=== PATIENT | male | born 1980 | race Caucasian/White ===

== ENCOUNTER 2017-05-03 10:17 | Emergency (ER) | payer SELFPAY ==
[~2017-05-03] VITALS: Ht 187.9 cm; Wt 99.8 kg
[~2017-05-03 10:17] MED LIST: AMOXICILLIN500 MG PO; CARAFATE1 G1 PO; CLARITIN10 MG PO; LEVOFLOXACIN500 MG PO; PRILOSEC20 MG PO; VICODIN ES 7501 TAB PO; ZITHROMAX Z PA250 MG PO
[2017-05-03 10:43] LABS: BASO % 0.3 % (0.0-1.0); EOS # 0.1 10*3/uL (0.0-0.4); EOS % 1.9 % (1.0-4.0); HEMATOCRIT 49.2 % (42.0-52.0); HEMOGLOBIN 17.4 g/dl (14.0-18.0); LYMPH # 2.3 10*3/uL (1.3-4.4); LYMPH % 32.3 % (27.0-41.0); MEAN CELL VOLUME 92.7 fl (80.0-94.0); MEAN CORPUSCULAR HGB 32.8 pg (27.0-31.0); MEAN CORPUSCULAR HGB CONC 35.4 g/dl (33.0-37.0); MEAN PLATELET VOLUME 9.9 fl (9.6-12.3); MONO # 0.5 10*3/uL (0.1-1.0); MONO % 6.8 % (3.0-9.0); NEUT # 4.2 10*3/uL (2.3-7.9); NEUT % 58.6 % (47.0-73.0); PLATELET COUNT AUTOMATED 226 10*3/uL (130-400); RED BLOOD COUNT 5.31 10*6/uL (4.50-5.90); RED CELL DISTRI WIDTH 13.4 % (0-14.5); WHITE BLOOD COUNT 7.2 10*3/uL (4.8-10.8)
[2017-05-03 10:51] LABS: ACT PARTIAL THROMBO TIME 23.4 SECONDS (20.8-31.5)
[2017-05-03 10:59] LABS: ALBUMIN 4.1 gm/dl (3.1-4.5); ALKALINE PHOSPHATASE 118 U/L (45-117); BUN 9 mg/dl (7-24); CHLORIDE 102 mmol/L (98-107); CREATININE 1.08 mg/dL (0.70-1.30); MAGNESIUM 2.1 mg/dL (1.5-2.1); POTASSIUM 3.8 mmol/L (3.5-5.1); SGOT/AST 23 IU/L (3-35); SGPT/ALT 31 U/L (12-78); SODIUM 137 mmol/L (136-145); TOTAL PROTEIN 7.9 gm/dL (6.4-8.2)
[2017-05-03 11:00] LABS: TROPONIN I < 0.015 ng/ml (<0.045)
[2017-05-03 12:20] VITALS: BP 134/89
[2017-05-03] MEDS ORDERED: CYCLOBENZAPRINE10 MG PO (12:34)
[2017-05-03] MEDS ORDERED: NAPROSYN500 MG PO (12:34)
== END 2017-05-03 13:44 | disposition home or self-care (01) ==
LOC: ED 10:17
PROVIDERS: Emergency Medicine
DX: R07.89 Other chest pain (principal); F17.200 Nicotine dependence, unspecified, uncomplicated

== ENCOUNTER 2017-12-06 17:47 | Emergency (ER) | payer SELFPAY ==
[~2017-12-06] VITALS: Wt 104.3 kg
[~2017-12-06 17:47] MED LIST changes: +CYCLOBENZAPRINE10 MG PO; +NAPROSYN500 MG PO
[2017-12-06 17:51] VITALS: BP 117/74
[2017-12-06] MEDS ORDERED: MEDROL DOSEPAK4 MG PO (19:10)
[2017-12-06] MEDS ORDERED: ROBAXIN500 M1 PO (19:10)
== END 2017-12-06 19:26 | disposition home or self-care (01) ==
LOC: ED 17:47
DX: M54.2 Cervicalgia (principal); M25.512 Pain in left shoulder; F17.200 Nicotine dependence, unspecified, uncomplicated

== ENCOUNTER 2019-11-19 08:38 | Emergency (ER) | payer BC ==
[~2019-11-19] VITALS: Ht 187.9 cm; Wt 104.3 kg
[~2019-11-19 08:38] MED LIST changes: +MEDROL DOSEPAK4 MG PO; +ROBAXIN500 M1 PO
[2019-11-19 08:44] VITALS: BP 135/76
[2019-11-19] MEDS ORDERED: SEPTDS PO (08:59)
== END 2019-11-19 09:30 | disposition home or self-care (01) ==
LOC: ED 08:38
DX: L02.415 Cutaneous abscess of right lower limb (principal); Z79.899 Other long term (current) drug therapy; Z87.891 Personal history of nicotine dependence

== ENCOUNTER 2019-11-23 08:34 | Emergency (ER) | payer BC ==
[~2019-11-23] VITALS: Ht 187.9 cm; Wt 104.3 kg
[~2019-11-23 08:34] MED LIST changes: +SEPTDS PO
[2019-11-23 08:41] VITALS: BP 130/86
== END 2019-11-23 09:14 | disposition home or self-care (01) ==
LOC: ED 08:34
DX: L02.415 Cutaneous abscess of right lower limb (principal); Z48.00 Encounter for change or removal of nonsurgical wound dressing; F17.200 Nicotine dependence, unspecified, uncomplicated; Z79.899 Other long term (current) drug therapy